=== PATIENT | male | born 1960 | race Caucasian/White ===

== ENCOUNTER 2023-05-03 16:22 | Inpatient (IN) | payer MEDICARE, OTHER ==
[2023-05-03 17:57] LABS: #Eosinphils 0.1 thou/uL (0.0-0.7); #Monocytes 0.7 thou/uL (0.11-0.59); %Basophils 0.3 % (0.0-1.0); %Eosinophils 0.8 % (0.0-10.0); %Lymphocytes 6.9 % (21.0-51.0); %Monocytes 9.3 % (0.0-10.0); %Neutrophils 82.4 % (42.0-75.0); Hematocrit 33.9 % (42.0-52.0); Hemoglobin 11.1 g/dL (14.0-18.0); Mean Corpuscular HGB CONC 32.7 g/dL (32.0-36.0); Mean Corpuscular Hemoglobin 30.6 pg (27.0-31.0); Mean Corpuscular Volume 93.4 fl (78.0-98.0); Platelet Count 345 10x3/uL (130-400); RBC Distribution Width 14.1 % (11.5-14.5); Red Blood Cell (RBC) Count 3.63 mill/uL (4.70-6.10); White Blood Cell (WBC) Count 7.2 10x3/uL (4.8-10.8)
[2023-05-03 18:19] LABS: ALT (SGPT) 19 U/L (8-55); AST (SGOT) 35 U/L (5-34); Albumin 3.9 g/dL (3.4-4.8); Alkaline Phosphatase 54 U/L (40-110); Anion Gap 21 mmol/L (10-20); BUN (Urea Nitrogen) 52 mg/dL (8.4-25.7); Bilirubin, Total 0.4 mg/dL (0.2-1.2); Calc. Creatinine Clearance 0 mL/min (70-130); Carbon Dioxide 22 mmol/L (23-31); Chloride 101 mmol/L (98-107); Estimated GFR 65; Globulin 4.6 g/dL (2.4-3.5); Glucose 58 mg/dL (80-115); Lipase 35 U/L (8-78); Potassium 5.2 mmol/L (3.5-5.1); Protein, Total 8.5 g/dL (5.8-8.1); Sodium 139 mmol/L (136-145)
[2023-05-03 18:23] LABS: Troponin I 0.022 ng/mL (< 0.028)
[2023-05-03 19:42] LABS: Bacteria/HPF None Seen HPF (None Seen); Bilirubin Negative (Negative); Blood, Urine 1+ (Negative); CAUTI Indications for Culture Pelvic or flank pain; Clarity Clear (Clear); Glucose, Urine (Dipstick) Normal (Negative); Ketone, Urine 40 mg/dL (Negative); Leukocyte Negative Leu/uL (Negative); Mucous/LPF Rare LPF (<2+); Nitrite Negative (Negative); Protein, Urine (Dipstick) 50 mg/dL (Neg-Trace); Specific Gravity, Urine 1.021 (1.002-1.036); Squamous Epithelial None Seen HPF (0-3); Urobilinogen Normal mg/dL (Less than 2); WBC/HPF 0-3 HPF (0-3)
[2023-05-03 19:51] LABS: Urine Culture Reflex No No
[2023-05-03] MEDS ORDERED: Acetaminophen 325 MG TAB PO PRN (20:41)
[2023-05-03] MEDS ORDERED: Ondansetron PF 4 MG/2 ML Vial IVP PRN (20:41)
[2023-05-03] MEDS ORDERED: Dextrose 5 %-0.45 % NaCl 1,000 ML IV SCH (20:45)
[2023-05-03] MEDS ORDERED: Bisacodyl 10 MG SUPP PR PRN (21:15)
[2023-05-03] MEDS ORDERED: Polyethylene Glycol 3350 17 GM Packet PO PRN (21:15)
[2023-05-03] MEDS ORDERED: Dextrose 5% in Water 1,000 ML IV PRN (22:15)
[2023-05-03] MEDS ORDERED: Glucagon 1 MG/ML KIT IM PRN (22:15)
[2023-05-03] MEDS ORDERED: Dextrose 50% Abboject 50 ML SYRINGE SLOW IVP PRN (22:15)
[2023-05-03 22:18] VITALS: BMI 18.3
[2023-05-03 23:41] LABS: Free T4 (Free Thyroxine) 1.08 ng/dL (0.70-1.48)
[2023-05-04] MEDS: Dextrose 5 %-0.45 % NaCl 1,000 ML IV SCH ×4 (00:09→20:58)
[2023-05-04 05:41] LABS: #Eosinphils 0.1 thou/uL (0.0-0.7); #Monocytes 0.6 thou/uL (0.11-0.59); #Neutrophils 5.2 thou/uL (1.40-6.50); %Basophils 0.3 % (0.0-1.0); %Eosinophils 1.4 % (0.0-10.0); %Lymphocytes 6.3 % (21.0-51.0); %Monocytes 9.2 % (0.0-10.0); %Neutrophils 82.6 % (42.0-75.0); Hematocrit 29.1 % (42.0-52.0); Hemoglobin 9.6 g/dL (14.0-18.0); Mean Corpuscular Volume 90.9 fl (78.0-98.0); Mean Platelet Volume 9.8 fL (7.4-10.4); Platelet Count 271 10x3/uL (130-400); RBC Distribution Width 14.1 % (11.5-14.5); White Blood Cell (WBC) Count 6.3 10x3/uL (4.8-10.8)
[2023-05-04 06:08] LABS: Anion Gap 12 mmol/L (10-20); BUN (Urea Nitrogen) 42 mg/dL (8.4-25.7); Calc. Creatinine Clearance 57 mL/min (70-130); Calcium 8.8 mg/dL (7.8-10.44); Carbon Dioxide 24 mmol/L (23-31); Chloride 105 mmol/L (98-107); Estimated GFR 81; Glucose 128 mg/dL (80-115); Potassium 3.8 mmol/L (3.5-5.1); Sodium 137 mmol/L (136-145)
[2023-05-04] MEDS: Pantoprazole 40 MG VIAL IVP SCH (08:57)
[2023-05-04] MEDS ORDERED: Carvedilol 3.125 MG TAB PO SCH (09:00)
[2023-05-04] MEDS ORDERED: Levothyroxine Sodium 125 MCG TAB PO SCH (09:00)
[2023-05-05] MEDS: Dextrose 5 %-0.45 % NaCl 1,000 ML IV SCH ×3 (05:32→20:26)
[2023-05-05 07:48] LABS: #Eosinphils 0.1 thou/uL (0.0-0.7); #Monocytes 0.6 thou/uL (0.11-0.59); #Neutrophils 4.7 thou/uL (1.40-6.50); %Basophils 0.2 % (0.0-1.0); %Eosinophils 1.9 % (0.0-10.0); %Lymphocytes 7.6 % (21.0-51.0); %Monocytes 10.8 % (0.0-10.0); %Neutrophils 79.3 % (42.0-75.0); Hematocrit 30.3 % (42.0-52.0); Hemoglobin 9.8 g/dL (14.0-18.0); Mean Corpuscular HGB CONC 32.3 g/dL (32.0-36.0); Mean Corpuscular Hemoglobin 30.1 pg (27.0-31.0); Mean Corpuscular Volume 92.9 fl (78.0-98.0); Mean Platelet Volume 10.3 fL (7.4-10.4); Platelet Count 256 10x3/uL (130-400); RBC Distribution Width 13.9 % (11.5-14.5); Red Blood Cell (RBC) Count 3.26 mill/uL (4.70-6.10); White Blood Cell (WBC) Count 5.9 10x3/uL (4.8-10.8)
[2023-05-05 08:05] LABS: Anion Gap 12 mmol/L (10-20); BUN (Urea Nitrogen) 17 mg/dL (8.4-25.7); Calc. Creatinine Clearance 65 mL/min (70-130); Calcium 8.5 mg/dL (7.8-10.44); Carbon Dioxide 25 mmol/L (23-31); Chloride 105 mmol/L (98-107); Estimated GFR 95; Glucose 111 mg/dL (80-115); Potassium 3.5 mmol/L (3.5-5.1); Sodium 138 mmol/L (136-145)
[2023-05-05] MEDS: Pantoprazole 40 MG VIAL IVP SCH (09:17)
[2023-05-06] MEDS: Dextrose 5 %-0.45 % NaCl 1,000 ML IV SCH (04:31)
[2023-05-06 04:50] LABS: Anion Gap 8 mmol/L (10-20); BUN (Urea Nitrogen) 10 mg/dL (8.4-25.7); Calc. Creatinine Clearance 66 mL/min (70-130); Calcium 8.6 mg/dL (7.8-10.44); Carbon Dioxide 26 mmol/L (23-31); Chloride 106 mmol/L (98-107); Estimated GFR 95; Glucose 93 mg/dL (80-115); Potassium 3.3 mmol/L (3.5-5.1); Sodium 137 mmol/L (136-145)
[2023-05-06] MEDS ORDERED: Dextrose 5 %-0.45 % NaCl 1,000 ML IV SCH (08:10)
[2023-05-06] MEDS: Pantoprazole 40 MG VIAL IVP SCH (09:13)
[2023-05-06] MEDS: Potassium Chloride 20 MEQ in Premix 1 BAG IVPB SCH ×2 (09:14→11:12)
[2023-05-06] MEDS: D5 1/2 NS w/20 mEq KCL 1,000 ML IV SCH ×2 (13:19→21:32)
[2023-05-07 05:30] LABS: Hematocrit 30.4 % (42.0-52.0); Mean Corpuscular HGB CONC 32.9 g/dL (32.0-36.0); Mean Corpuscular Hemoglobin 30.8 pg (27.0-31.0); Mean Corpuscular Volume 93.5 fl (78.0-98.0); Mean Platelet Volume 10.4 fL (7.4-10.4); Platelet Count 241 10x3/uL (130-400); Red Blood Cell (RBC) Count 3.25 mill/uL (4.70-6.10); White Blood Cell (WBC) Count 6.1 10x3/uL (4.8-10.8)
[2023-05-07 05:54] LABS: Anion Gap 10 mmol/L (10-20); BUN (Urea Nitrogen) 7 mg/dL (8.4-25.7); Calc. Creatinine Clearance 61 mL/min (70-130); Calcium 8.8 mg/dL (7.8-10.44); Carbon Dioxide 26 mmol/L (23-31); Chloride 105 mmol/L (98-107); Estimated GFR 88; Glucose 86 mg/dL (80-115); Sodium 137 mmol/L (136-145)
[2023-05-07] MEDS: D5 1/2 NS w/20 mEq KCL 1,000 ML IV SCH ×2 (08:25→16:32)
[2023-05-07] MEDS: Pantoprazole 40 MG VIAL IVP SCH (08:25)
[2023-05-07] MEDS: Morphine 2 MG/ML VIAL SLOW IVP PRN ×2 (09:09→13:21)
[2023-05-07] MEDS ORDERED: CEFAZOLIN 2 GM VIAL ONE (11:11)
[2023-05-07] MEDS ORDERED: Sodium Chloride 0.9% 100 ML ONE (11:12)
[2023-05-07] MEDS ORDERED: Lidocaine 1% PF 5 ML VIAL ONE ×2 (11:18→11:51)
[2023-05-07] MEDS ORDERED: PROPOFOL 20 ML ONE (11:18)
[2023-05-07] MEDS ORDERED: Rocuronium Bromide 10 MG/ML (10ML VIAL) ONE ×2 (11:19→11:51)
[2023-05-07] MEDS ORDERED: fentaNYL PF 100 MCG/2 ML SYRINGE ONE (11:20)
[2023-05-07] MEDS ORDERED: EPINEPHrine 1 MG/ML VIAL ONE (11:31)
[2023-05-07] MEDS ORDERED: Bupivacaine 0.25% HCL 30 ML VIAL ONE (11:31)
[2023-05-07] MEDS ORDERED: PROPOFOL 200 MG/20 ML VIAL ONE (11:51)
[2023-05-07] MEDS ORDERED: Ondansetron PF 4 MG/2 ML Vial ONE ×2 (11:51→12:14)
[2023-05-07] MEDS ORDERED: Dexamethasone 20 MG/5 ML VIAL ONE ×2 (11:51→12:14)
[2023-05-07] MEDS ORDERED: ePHEDrine Sulfate 50 MG/10 ML VIAL ONE ×2 (11:51→12:14)
[2023-05-07] MEDS ORDERED: SUGAMMADEX SODIUM 200 MG/2 ML VIAL ONE (12:14)
[2023-05-07] MEDS ORDERED: Glycopyrrolate 0.2 MG/ML 5 ML SYRINGE ONE (12:14)
[2023-05-07] MEDS ORDERED: Hydrocodone-Acetamin 15 ML UDCUP PO PRN (12:42)
[2023-05-08 03:53] VITALS: TEMP 97.6
[2023-05-08 05:02] LABS: Hematocrit 30.8 % (42.0-52.0); Mean Corpuscular HGB CONC 32.5 g/dL (32.0-36.0); Mean Corpuscular Hemoglobin 30.3 pg (27.0-31.0); Mean Corpuscular Volume 93.3 fl (78.0-98.0); Mean Platelet Volume 10.1 fL (7.4-10.4); Platelet Count 221 10x3/uL (130-400); RBC Distribution Width 13.8 % (11.5-14.5); White Blood Cell (WBC) Count 9.2 10x3/uL (4.8-10.8)
[2023-05-08] MEDS: D5 1/2 NS w/20 mEq KCL 1,000 ML IV SCH (05:05)
[2023-05-08 05:37] LABS: Anion Gap 9 mmol/L (10-20); BUN (Urea Nitrogen) 10 mg/dL (8.4-25.7); Calc. Creatinine Clearance 67 mL/min (70-130); Calcium 8.9 mg/dL (7.8-10.44); Carbon Dioxide 25 mmol/L (23-31); Chloride 105 mmol/L (98-107); Estimated GFR 95; Glucose 113 mg/dL (80-115); Potassium 5.1 mmol/L (3.5-5.1); Sodium 134 mmol/L (136-145)
[2023-05-08 07:35] VITALS: BP 116/65
[2023-05-08] MEDS ORDERED: Dextrose 5 %-0.45 % NaCl 1,000 ML IV SCH (08:00)
[2023-05-08] MEDS: Pantoprazole 40 MG VIAL IVP SCH (08:19)
== END 2023-05-08 10:55 | disposition home or self-care (01) | DRG 907 ==
LOC: ERS 16:22 → SJJU 20:45 → INTOOBSV 20:45 → OBSVTOIN 05-04 12:42
PROVIDERS: ADMIT Internal Medicine; ATTEND Internal Medicine
PROC: 0DQW4ZZ Repair Peritoneum, Percutaneous Endoscopic Approach (ICD-10-PCS; principal; 2023-05-07)
PROC: 0DB64ZZ Excision of Stomach, Percutaneous Endoscopic Approach (ICD-10-PCS; 2023-05-07)
DX: T81.83XA Persistent postprocedural fistula, initial encounter (principal); E43 Unspecified severe protein-calorie malnutrition; Z68.1 Body mass index [BMI] 19.9 or less, adult; K31.6 Fistula of stomach and duodenum; I25.10 Atherosclerotic heart disease of native coronary artery without angina pectoris; I10 Essential (primary) hypertension; E03.9 Hypothyroidism, unspecified; K21.9 Gastro-esophageal reflux disease without esophagitis; E16.2 Hypoglycemia, unspecified; E86.0 Dehydration; E87.5 Hyperkalemia; R13.10 Dysphagia, unspecified; E87.6 Hypokalemia; I25.2 Old myocardial infarction; Z79.82 Long term (current) use of aspirin; Z79.899 Other long term (current) drug therapy; Z95.1 Presence of aortocoronary bypass graft; Z98.890 Other specified postprocedural states; Z87.891 Personal history of nicotine dependence; Y83.8 Other surgical procedures as the cause of abnormal reaction of the patient, or of later complication, without mention of misadventure at the time of the procedure
CPT/HCPCS: 36415; 36416; 80048; 80053; 81001; 83690; 84439; 84443; 84481; 84484; 85025; 85027; 93005; 96360; 96361; 96374; A4649; C9113; G0378; J0171; J1100; J2272; J2405; J2704; J3480; J3490; J7042; J7070; J7999; S0020

== ENCOUNTER 2023-05-11 11:10 | Day surgery (SDC) | payer MEDICARE, OTHER ==
[~2023-05-11 11:10] MED LIST: Ondansetron PF 4 MG/2 ML Vial IVP PRN; Sodium Chloride 0.9% 1,000 ML IV SCH; Thiamine HCl 100 MG, Multivitamins, Adult 10 ML in Sodium Chloride 0.9% 1,000 ML IVPB SCH
[2023-05-11 12:01] VITALS: BP 108/55; TEMP 98.3
== END 2023-05-11 14:36 | disposition home or self-care (01) ==
LOC: ONC/OP 11:10
PROVIDERS: ATTEND Surgery
DX: E86.0 Dehydration (principal)
CPT/HCPCS: 96361; 96365; J3411; J7050